=== PATIENT | female | born 1995 | race Caucasian/White ===

== ENCOUNTER 2023-10-18 07:24 | Emergency (ER) | payer MEDICAID ==
[~2023-10-18] VITALS: Ht 162.6 cm; Wt 54.4 kg
[2023-10-18 07:38] VITALS: BP 95/72; TEMP 101.6; O2SAT 99
[2023-10-18] MEDS ORDERED: ACETAMINOPHEN ES 500 MG TABLET ONE (08:58)
[2023-10-18] MEDS ORDERED: ACETAMINOPHEN ES 500 MG TABLET PO ONE (09:00)
[2023-10-18 09:30] LABS: APPEARANCE,URINE CLEAR (CLEAR); COLOR,URINE YELLOW (YELLOW); PREGNANCY TEST URINE QUAL NEGATIVE (NEGATIVE)
[2023-10-18 09:31] LABS: BILIRUBIN,URINE NEGATIVE (NEGATIVE); BLOOD, URINE NEGATIVE Ery/uL (NEGATIVE); KETONES,URINE 3+ mg/dL (NEGATIVE); LEUKOCYTE ESTERASE ,URINE NEGATIVE (NEGATIVE); NITRITE, URINE NEGATIVE (NEGATIVE); PROTEIN,URINE NEGATIVE (NEGATIVE); UGLUCOSE NEGATIVE (NEGATIVE); UROBILINOGEN,URINE 0.2 EU/dL (0.2)
[2023-10-18] MEDS ORDERED: OSEL75CA PO (10:28)
[2023-10-18] MEDS ORDERED: ACET-2605 PO (10:28)
[2023-10-18] MEDS ORDERED: OSELTAMIVIR PHOSPHATE 75 MG CAPSULE PO ONE (10:30)
[2023-10-18] MEDS ORDERED: OSELTAMIVIR PHOSPHATE 75 MG CAPSULE ONE (10:34)
== END 2023-10-18 10:54 | disposition home or self-care (01) ==
LOC: ER 07:43
DX: J10.1 Influenza due to other identified influenza virus with other respiratory manifestations (principal); R10.2 Pelvic and perineal pain; Z79.899 Other long term (current) drug therapy; Z20.822 Contact with and (suspected) exposure to COVID-19
CPT/HCPCS: 99283; 87426; 87804 ×2; 84703; 81003; C9803